=== PATIENT | male | born 1955 | race Caucasian/White ===

== ENCOUNTER 2017-05-12 13:47 | Outpatient (CLI) | payer OTHER ==
[~2017-05-12] VITALS: Ht 175.3 cm; Wt 69.3 kg
[2017-05-12 13:55] VITALS: BP 134/85; PULSE 83; RESP 16; Ht 175.3 cm; Wt 69.3 kg
[2017-05-12] MEDS ORDERED: ENAL10TA PO (14:03)
[2017-05-12] MEDS ORDERED: METF1000 PO (14:03)
[2017-05-12] MEDS ORDERED: RANI300T PO (14:03)
--- NOTE | 2017-05-12 18:35 | CONS ---
[facility] INITIAL OUTPATIENT CONSULTATION NOTE DATE OF CONSULTATION: 05/12/2017 PLACE OF SERVICE: [facility]. ASSESSMENT AND PLAN: A very pleasant 62-year-old gentleman with multiple comorbid issues including diabetes mellitus, hypertension, alcohol and substance abuse and heavy tobacco abuse in the recent past, presenting with what appear to be multiple cysts in the liver with areas of enhancement around them in the right lobe of the liver, as well as multiple cysts in the left lobe of the liver. The stability in the lesions from 2016 is noted. The differential does include malignancies such as hepatocellular carcinoma with necrosis, but the size of these lesions and the stability of them from last year indicate other possibilities such as benign cystic lesions of the liver. Certainly the cysts do not appear to be completely simple cysts. Biliary cystadenoma with its the rare counterpart of biliary cystadenocarcinoma are in the differential. There is also a possibility that there is combination of focal nodular hyperplasia or hemangioma in addition to the liver cysts, although being a male patient it would make it less likely since these are seen more in female patients. Currently, I do not see any indication for acute surgical intervention. If this is a benign process, the patient certainly does not have enough symptoms to warrant acute surgical intervention. At times, benign cystic disease can become symptomatic enough with abdominal pain or difficulty with early satiety or bowel obstruction, where a laparoscopic or an open cyst unroofing would be indicated. Biliary cystadenomas that are complex are also oftentimes removed due to fear of biliary cystadenocarcinoma conversion , although certainly the data on this is scant and more anecdotal in nature due to rarity of this process. If this is a hoda malignancy, then the option of surgery is unfortunately not available since the process appears to involve both lobes of the liver. There is also concern about overall quality of the liver given the heavy alcohol abuse that the patient has had. Note that there is no evidence of obvious thrombocytopenia, which would indicate less likelihood of having portal hypertension. I do believe that the patient requires further workup and more multidisciplinary care and certainly observation short term. I explained all this in detail with the patient and his family that included his and his son, and answered all their questions to the best of my ability. I believe that the patient and family appeared to understand and agreed with the plan. With the above assessment, I have recommended the followin. Multidisciplinary tumor board presentation. 2. Consideration for percutaneous liver biopsy of both the solid lesion in the right lobe of the liver as well as normal liver parenchyma. 3. Short-term followup CT in 3 to 6 months. 4. Follow up with hepatology. 5. Follow up with us. Thank you again for allowing us to participate in the care of this very pleasant gentleman and his wonderful family. If there are any questions, please feel free to contact me at [phone] UPDATED CLINICAL SUMMARY: A very pleasant 62-year-old gentleman with comorbidities that include diabetes mellitus, hypertension, alcohol abuse that is reportedly in remission and previous substance abuse in remission, who was diagnosed with liver cysts around 2014 and has had a few images since then, and referred to us for evaluation and management. COMORBIDITIES: 1. Diabetes mellitus. 2. Hypertension. 3. Alcoholism in remission. 4. Substance abuse in remission. 5. Status post cholecystectomy around 2004 in [place] through open incision. 6. History of liver cancer in the father. 7. History of hypertension in the mother. 8. Depression. 9. Former smoker, approximately 40+ cigarettes per day. DATE OF ADMISSION: 05/12/2017 HISTORY OF PRESENT ILLNESS: The patient is a very pleasant 62-year-old gentleman with the above-mentioned comorbidities, who we were kindly asked to consult regarding management of his liver cysts. He has had known liver cysts since 2014. He has had on and off minor abdominal discomfort and had evaluation at an emergency room in 06/2016 when he presented with nausea and vomiting. This was at [facility] in [place], [place]. At that time a liver CT was done that demonstrated multiple cysts with thickened septa within them. Biopsy was recommended, but it was not performed. He also had traveled back to [place] and had a few studies done there, but no report of a biopsy. He was started on natural therapy with ozone (received ozone per rectum for [address]). [address] scan on 06/30/2016, he had a 17.2 cm cyst with septa and multiple other cystic lesions with solid components, mainly in the right lobe of the liver but multiple cysts still present in the left lobe of the liver. There was also evidence of hepatomegaly. An ultrasound on 2016, showed 13.5 cm complex cystic mass and other cysts in the liver noted. There was also cyst in the kidney which measured 3.4 cm. The patient himself does not report any major complaints at this time. There is perhaps a 5 to 7 pound weight loss over the last few years and his appetite has remained stable. He has had problems with constipation in the past, but no major issues with blood in the stool or urine, and no other major complaints. ALLERGIES: NO KNOWN DRUG ALLERGIES. MEDICATIONS: Include: 1. Enalapril 2. Metformin. 3. Ranitidine. SOCIAL HISTORY: The patient was born in [place]. He is and has 2 children and lives with his family. Currently he is unemployed. He reported smoking more than 40 cigarettes per day for a number of years, but has quit. He also drank heavily starting at age 27 and quitting approximately the summer. He also snorted drugs starting at age 32 and again quit around May 2016. 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 FAMILY HISTORY: His father is and had diagnosis of liver cancer. His mother is alive and has hypertension. His sister had breast cancer as well. REVIEW OF SYSTEMS: Other than the above-mentioned, there are no other pertinent positives or pertinent negatives in a complete 14-point review of systems. PHYSICAL EXAMINATION: GENERAL: The patient appears to be a very pleasant gentleman of descent, appearing stated age, sitting in a chair comfortably and in no acute distress. BMI is 22.6. VITAL SIGNS: Temperature 98.2, blood pressure 134/85, pulse 83, respiratory rate 16, pulse oximetry 98% on room air. LABORATORY VALUES: Dated 03/2017 shows nonreactive hepatitis C antibody. CA 19 -9 of 17. CEA 1.8. Hepatitis B core antibody and surface antigen nonreactive. Platelet count 265. INR 1.0. Electrolytes normal. CO2 of 28, creatinine 0.89. Total bilirubin 1.3, AST 28, ALT 17, alkaline phosphatase 275. [id number] of 21.8, but alpha-fetoprotein itself was 2.6. IMAGING: The patient has had CT scan of abdomen and pelvis once 2015 and once in 2016. The images on 04/14/2017 show an enlarged liver with diffuse enhancing masses extending from the dome of the right liver to the inferior aspect of the right lobe with areas of central necrosis. There was also a smaller area of abnormal enhancement with somewhat central necrosis in the left hepatic lobe. Multiple large cystic areas were present throughout the liver. The gallbladder was absent. The bile ducts were normal. The overall impression was suspicious for diffuse infiltrating hepatocellular carcinoma, primarily involving the right lobe with some involvement of the left lobe. Multiple cysts were noted. Note that I reviewed all the available and pertinent images, especially the images from 03/2017 and compared them to the ones from summer. I do agree that there are cysts in the liver and there are areas of enhancement; however, the stability of these areas as well as the presence of the cysts make me think more of perhaps a benign process such as a biliary cystadenoma or simple hepatic cysts with possible hemorrhage in the past. The ultrasound done on 01/21/2017 does show evidence of blood flow through the septa and therefore, this could potentially be a biliary cystadenoma with high risk. Otherwise, I do agree with the rest of the findings on the images. Dictated By: LYN EDMONDSON/NTS Conf#: [id number] DID#: [id number] CC: MYNOR OLEA MD; [facility];*[facility]* [facility]
== END 2017-05-12 16:27 | disposition home or self-care (01) ==
LOC: HPC 13:47
PROVIDERS: ATTEND Transplant Surgery
DX: K76.89 Other specified diseases of liver (principal); E11.9 Type 2 diabetes mellitus without complications; Z79.84 Long term (current) use of oral hypoglycemic drugs; I10 Essential (primary) hypertension; F10.21 Alcohol dependence, in remission; F32.9 Major depressive disorder, single episode, unspecified; Z87.891 Personal history of nicotine dependence; Z90.49 Acquired absence of other specified parts of digestive tract
CPT/HCPCS: G0463

== ENCOUNTER 2017-09-13 13:43 | Outpatient (CLI) | payer OTHER ==
[~2017-09-13] VITALS: Ht 175.3 cm; Wt 69.5 kg
[~2017-09-13 13:43] MED LIST: ENAL10TA PO; METF1000 PO; RANI300T PO
[2017-09-13 13:52] VITALS: BP 143/71; PULSE 54; RESP 18; Ht 175.3 cm; Wt 69.5 kg
--- NOTE | 2017-09-13 17:13 | PN ---
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 Recommend multidisciplinary treatment with systemic therapies as well as consideration for localized therapy of liver. Does not seem to be functional in nature, but may require further w/u to better delineate. Note that I believe there is metastatic NE tumor to perigastric lymph nodes and other lymph nodes based on my review of CT abd/pelvis 09/06/17. Also does not seem to be a transplant candidate at this time. Explained to patient, his daughter and and answered all questions. Patient and family appeared to understand and agreed with plans. With above assessment, I've recommended the following for today: 1. Referral to oncology with consideration for systemic as well as local therapy 2. From a liver standpoint, TACE and radioembolization are options and should be considered for symptom relief despite presence of extrahepatic disease; would be helpful to have MD[facility] input as well 3. [facility] presentation Thank you again for your great care of this very pleasant patient and wonderful family. If there are any questions, please feel free to call me at [phone]. Nature of presenting problem: high severity Please note that, given the extensive number of diagnoses or management options , the extensive amount and/or complexity of data needed to be reviewed, and high risk of complications and/or morbidity or mortality, this qualifies as high complexity type of decision-making. Disclaimers: 1. Inadvertent spelling and grammatical errors are likely due to electronic health record (EHR)/dictation software used and do not reflect on the quality of delivered patient care. 2. The electronic timestamp recorded on this note does not necessarily reflect the actual date and time of the visit or the service. 3. Portions of this note may have been created through electronic templates and computer algorithms that might bring in information either from the system or from other physicians and providers. Please note that such information may or may not contain errors, the occurrence of which are outside of my control. In general (but not always) this happens either in the beginning or at the end of the note. The portion of the note that I have created are generally done in 1 continuous block of text, flanked at the beginning and at the end by " ", and entered into one field in the EHR. 4. There may be other unanticipated errors in the note that are outside of my control. I can only attest to the portions of the note that I have created. Updated Clinical Summary: A very pleasant 62-year-old gentleman with comorbidities that include diabetes mellitus, hypertension, alcohol abuse that is reportedly in remission and previous substance abuse in remission, who was diagnosed with liver cysts around 2014 and has had a few images since then, and referred to us for evaluation and management. COMORBIDITIES: 1. Diabetes mellitus. 2. Hypertension. 3. Alcoholism in remission. 4. Substance abuse in remission. 5. Status post cholecystectomy around 2004 in [place] through open incision. 6. History of liver cancer in the father. 7. History of hypertension in the mother. 8. Depression. 9. Former smoker, approximately 40+ cigarettes per day. 10. S/p CT-guided liver biopsy R lobe lesion [facility] 08/13/17. 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 ABDOMEN: Soft, nontender and nondistended. Palpable bulge in mid upper epigastric area, corresponding to large hepatic cyst. There are no peritoneal signs or guarding. SKIN: Skin appears to be pink and feels warm to touch. NEUROLOGIC: Patient is awake, alert, and follows commands appropriately. Exam/Review of Systems Vital Signs Vitals Vital Signs Date Time Temp Pulse Resp B/P Pulse Ox O2 Delivery O2 Flow Rate FiO2 09/13/17 13:52 98.7 54 18 143/71 99 Room Air LYN ABURTO M.D. Sep 13, 2017 17:13
== END 2017-09-13 17:00 | disposition home or self-care (01) ==
LOC: HPC 13:43
PROVIDERS: ATTEND Transplant Surgery
DX: C7B.02 Secondary carcinoid tumors of liver (principal); E11.9 Type 2 diabetes mellitus without complications; I10 Essential (primary) hypertension; F10.21 Alcohol dependence, in remission; Z87.891 Personal history of nicotine dependence; F19.21 Other psychoactive substance dependence, in remission; F32.9 Major depressive disorder, single episode, unspecified
CPT/HCPCS: G0463